=== PATIENT | female | born 1950 | race Caucasian/White ===

== ENCOUNTER → 2017-08-07 | Outpatient (CLI) | payer MEDICARE, OTHER ==
--- NOTE | 2017-08-07 14:21 | RADIOLOGY REPORT (SQ) ---
EXAM DESCRIPTION: MRI PELVIS COMBO COMPLETED DATE/TIME: 08/07/2017 2:02 pm REASON FOR STUDY: DYSURIA, PELVIC AND PERINEAL PAIN R30.0 DYSURIA R10.2 PELVIC AND PERINEAL PAIN COMPARISON: None. TECHNIQUE: Multiplanar multisequence imaging performed without and with contrast including axial, sa gittal and coronal T2, axial T, axial gradient fat sat T1, axial, sagittal and coronal fat sat T2 pos t contrast. CONTRAST TYPE AND DOSE: 15 mL Prohance. RENAL FUNCTION: GFR > 60. LIMITATIONS: None. FINDINGS: BLADDER AND URETHRA: No focal bladder wall thickening or nodularity. Smooth mucosa. The urethra has smooth contour with no focal asymmetry. No abnormal enhancement. No focal lesions. PELVIC SOFT TISSUES: Normal. No masses. UTERUS: Prior hysterectomy. RIGHT OVARY: Not visualized. LEFT OVARY: Not visualized. FREE FLUID: None. PELVIC SKELETAL STRUCTURES: No abnormal marrow signal. EXTRA PELVIS SOFT TISSUES: No masses. OTHER: No other significant finding. IMPRESSION: No significant abnormality. TECHNICAL DOCUMENTATION: JOB ID: [id number] [employer]- All Rights Reserved
== END ==
LOC: RAD 13:00
PROVIDERS: ATTEND Urology
DX: R10.2 Pelvic and perineal pain (principal); R30.0 Dysuria
CPT/HCPCS: 82565; 72197; A9576

== ENCOUNTER → 2018-11-05 | Outpatient (CLI) | payer MEDICARE, OTHER ==
--- NOTE | 2018-11-05 13:21 | RADIOLOGY REPORT (SQ) ---
EXAM DESCRIPTION: BARIUM SWALLOW ESOPHAGUS COMPLETED DATE/TIME: 11/05/2018 9:38 am REASON FOR STUDY: DYSPHAGIA (R13.10) R13.10 DYSPHAGIA, UNSPECIFIED COMPARISON: None. TECHNIQUE: Under fluoroscopic guidance, patient ingested effervescent granules followed by thick and thin barium. Fluoroscopic spot images and routine radiographic images acquired and stored on PACS. 12 MM BARIUM TABLET GIVEN: Yes. Slight delay in passage through the esophagus. LIMITATIONS: None. FLUOROSCOPY TIME: FLUORO TIME: 1 minutes 25 seconds of fluoroscopy was used. 14 images saved to PACS. FINDINGS: NEUROMUSCULAR COORDINATION OF SWALLOW: Normal. No aspiration. Mild cricopharyngeal hypert rophy. ESOPHAGEAL MOTILITY: Slow primary peristalsis. Focal area of narrowing at the level of the thoracic inlet which may be focal area of spasm although extrinsic compression cannot be entirely ruled out. There is slight delay in passage of the 12 mm barium tablet through this area. ESOPHAGEAL MUCOSA: Normal mucosa without masses or ulceration. GASTRO-ESOPHAGEAL JUNCTION: Small sliding hiatal hernia with mild gastroesophageal reflux seen. 12 m m barium tablet passed through the GE junction without delay. NON-GI TRACT STRUCTURES: No significant finding. OTHER: No other significant finding. IMPRESSION: FOCAL AREA OF NARROWING OF THE ESOPHAGUS AT THE THORACIC INLET WHICH MAY BE FOCAL AREA O F SPASM ALTHOUGH EXTRINSIC COMPRESSION CANNOT BE ENTIRELY RULED OUT. 12 MM BARIUM TABLET IS DELAYED THROUGH THIS AREA. FOLLOW-UP CLINICALLY INDICATED. SMALL SLIDING HIATAL HERNIA WITH MILD GASTROE SOPHAGEAL REFLUX. COMMENT: Quality ID [id number]: Final reports for procedures using fluoroscopy that document radiation exp osure indices, or exposure time and number of fluorographic images (if radiation exposure indices are not available) TECHNICAL DOCUMENTATION: JOB ID: [id number] [employer]- All Rights Reserved Reading location - IP/workstation name: [email or web address]
== END ==
LOC: RAD 08:52
PROVIDERS: ATTEND Internal Medicine
DX: K21.9 Gastro-esophageal reflux disease without esophagitis (principal); K44.9 Diaphragmatic hernia without obstruction or gangrene; R13.10 Dysphagia, unspecified
CPT/HCPCS: 74220

== ENCOUNTER 2019-02-14 17:10 | Emergency (ER) | payer MEDICARE, OTHER ==
[2019-02-14] MEDS ORDERED: KETOROLAC TROMETHAMINE INJ/PF 30 MG/1 ML SDV IV ONE (17:40)
[2019-02-14] MEDS ORDERED: NORMAL SALINE 500 ML IV ONE (17:42)
--- NOTE | 2019-02-14 17:44 | ER Document Report ---
ED Medical Screen (RME) - General Chief Complaint: Flank Pain Stated Complaint: FLANK PAIN Time Seen by Provider: 02/14/19 17:36 Primary Care Provider: ARLYN RODGERS MD [Primary Care Provider] - Follow up as needed Mode of Arrival: Ambulatory Information source: Patient Notes: 68-year-old female presents to ED for complaint of right flank shoulder and chest pain. She states his pain with movement or change in pain with deep reason. States she does have a history of kidney stones essential tremors cholesterol fibromyalgia fractured fingers and toes and had a colonoscopy a month ago. She states she went in and followed up visit recently and they told her that if she continued to have pain they were going to do a CAT scan of the abdomen. She has had bilateral shoulder repair hysterectomy rectocele repair gallbladder removed and finger surgery. She is alert oriented respirations regular and unlabored speaking in full sentences. I have greeted and performed a rapid initial assessment of this patient. A comprehensive ED assessment and evaluation of the patient, analysis of test results and completion of medical decision making process will be conducted by an additional ED providers. TRAVEL OUTSIDE OF THE [place] IN LAST 30 DAYS: No - Related Data Allergies/Adverse Reactions: ceftriaxone sodium [From Rocephin] Allergy (Severe, Verified 07/04/15 09:56) Shortness of Breath clarithromycin [From Biaxin] Allergy (Severe, Verified 07/04/15 09:56) n and v codeine [Codeine] Allergy (Severe, Verified 07/04/15 09:56) ?rash latex [Latex] Allergy (Severe, Verified 07/04/15 09:56) Generalized Itching levofloxacin [From Levaquin] Allergy (Severe, Verified 07/04/15 09:56) Shortness of Breath metronidazole [From Flagyl] Allergy (Severe, Verified 07/04/15 09:56) n and v niacin [From Niaspan Extended-Release] Allergy (Severe, Verified 07/04/15 09:56) Anaphylaxis oxycodone HCl [From Percodan] Allergy (Severe, Verified 07/04/15 09:56) rash oxycodone terephthalate [From Percodan] Allergy (Severe, Verified 07/04/15 09:56) rash Penicillins Allergy (Severe, Verified 07/04/15 09:56) ? does not remember Sulfa (Sulfonamide Antibiotics) Allergy (Severe, Verified 07/04/15 09:56) ? does not remember tramadol HCl [From Ultram] Allergy (Severe, Verified 07/04/15 09:56) rash Past Medical History - Social History Frequency of alcohol use: None Drug Abuse: None - Past Medical History Cardiac Medical History: Reports: Hx Hypercholesterolemia Denies: Hx Coronary Artery Disease, Hx Heart Attack, Hx Hypertension Pulmonary Medical History: Reports: Hx Bronchitis - hx of, Hx Pneumonia - hx of Denies: Hx Asthma, Hx COPD Neurological Medical History: Denies: Hx Cerebrovascular Accident, Hx Seizures Renal/ Medical History: Denies: Hx Peritoneal Dialysis GI Medical History: Reports: Hx Gastroesophageal Reflux Disease Musculoskeltal Medical History: Reports Hx Arthritis - fibromyalgia, Reports Hx Fibromyalgia Past Surgical History: Reports: Hx Cholecystectomy, Hx Hysterectomy - Immunizations Hx Diphtheria, Pertussis, Tetanus Vaccination: Yes Physical Exam - Vital signs Vitals: Temp Pulse Resp BP Pulse Ox 98.3 F 91 16 110/66 96 02/14/19 17:30 02/14/19 17:30 02/14/19 17:30 02/14/19 17:30 02/14/19 17:30 Course - Vital Signs Vital signs: Temp Pulse Resp BP Pulse Ox 98.3 F 91 16 110/66 96 02/14/19 17:30 02/14/19 17:30 02/14/19 17:30 02/14/19 17:30 02/14/19 17:30 Doctor's Discharge - Discharge Referrals: ARLYN RODGERS MD [Primary Care Provider] - Follow up as needed
[2019-02-14 19:05] LABS: ABSOLUTE BASOPHILS # (AUTO) 0.1 10^3/uL (0.0-0.2); ABSOLUTE EOSINOPHILS # (AUTO) 0.1 10^3/uL (0.0-0.6); ABSOLUTE LYMPHOCYTES (AUTO) 1.8 10^3/uL (0.5-4.7); ABSOLUTE MONOCYTES (AUTO) 0.9 10^3/uL (0.1-1.4); ABSOLUTE NEUT (AUTO) 6.4 10^3/uL (1.7-8.2); BASOPHILS % (AUTO) 0.6 % (0-2); EOSINOPHILS % (AUTO) 0.7 % (0-6); HEMATOCRIT 41.2 % (36.0-47.0); LYMPHOCYTES % (AUTO) 19.3 % (13-45); MEAN CORPUSCULAR HEMOGLOBIN 30.5 pg (27.0-33.4); MEAN CORPUSCULAR HGB CONC 34.1 g/dL (32.0-36.0); MEAN CORPUSCULAR VOLUME 90 fl (80-97); MONOCYTES % (AUTO) 9.3 % (3-13); PLATELET COUNT 193 10^3/uL (150-450); RED BLOOD COUNT 4.61 10^6/uL (3.72-5.28); RED CELL DISTRIBUTION WIDTH 13.8 % (11.5-14.0); SEGMENTED NEUTROPHILS % (AUTO) 70.1 % (42-78); TOTAL CELLS COUNTED % (AUTO) 100 %; WHITE BLOOD COUNT 9.2 10^3/uL (4.0-10.5)
--- NOTE | 2019-02-14 19:10 | RADIOLOGY REPORT (SQ) ---
EXAM DESCRIPTION: CHEST 2 VIEWS COMPLETED DATE/TIME: 02/14/2019 6:55 pm REASON FOR STUDY: pain right chest flank and abdomen COMPARISON: Chest x-ray 10/09/2013. EXAM PARAMETERS: NUMBER OF VIEWS: two views TECHNIQUE: Digital Frontal and Lateral radiographic views of the chest acquired. RADIATION DOSE: NA LIMITATIONS: none FINDINGS: LUNGS AND PLEURA: No consolidation, pneumothorax or pleural effusion. Mild atelectasis at the left lung base. MEDIASTINUM AND HILAR STRUCTURES: No masses or contour abnormalities. HEART AND VASCULAR STRUCTURES: Heart normal size. No evidence for failure. BONES: No acute findings. HARDWARE: None in the chest. IMPRESSION: Mild atelectasis at the left lung base. TECHNICAL DOCUMENTATION: JOB ID: [id number] [place]-64 2010 [employer]- All Rights Reserved Reading location - IP/workstation name: [email or web address]
[2019-02-14 19:15] LABS: APPEARANCE,URINE CLEAR; BILIRUBIN,URINE NEGATIVE (NEGATIVE); COLOR,URINE YELLOW; GLUCOSE, URINE NEGATIVE (NEGATIVE); KETONES,URINE NEGATIVE (NEGATIVE); LEUKOCYTE ESTERASE,URINE MODERATE (NEGATIVE); NITRITE,URINE NEGATIVE (NEGATIVE); PROTEIN,URINE NEGATIVE (NEGATIVE); URINE SPECIFIC GRAVITY 1.017; UROBILINOGEN,URINE NEGATIVE mg/dL (<2.0)
[2019-02-14 19:24] LABS: ALBUMIN 4.3 g/dL (3.5-5.0); ALKALINE PHOSPHATASE 78 U/L (38-126); ANION GAP 10 (5-19); ASPARTATE AMINO TRANSFERASE 21 U/L (14-36); BILIRUBIN,DIRECT 0.2 mg/dL (0.0-0.4); BILIRUBIN,TOTAL 0.4 mg/dL (0.2-1.3); BLOOD UREA NITROGEN 18 mg/dL (7-20); CALCIUM 9.5 mg/dL (8.4-10.2); CARBON DIOXIDE 29 mmol/L (22-30); CHLORIDE 99 mmol/L (98-107); CREATINE KINASE 29 U/L (30-135); GLUCOSE 121 mg/dL (75-110); POTASSIUM 4.1 mmol/L (3.6-5.0); TOTAL PROTEIN 6.9 g/dL (6.3-8.2)
[2019-02-14 19:35] LABS: CREATINE KINASE MB 0.25 ng/mL (<4.55)
[2019-02-14 19:41] LABS: TROPONIN I < 0.012 ng/mL
[2019-02-14] MEDS ORDERED: ONDANSETRON HCL INJ/PF 4 MG/2 ML SDV IV ONE (20:15)
[2019-02-14] MEDS ORDERED: FENTANYL CITRATE INJ/PF 100 MCG/2 ML AMPUL IV ONE (20:15)
--- NOTE | 2019-02-14 20:17 | ER Document Report ---
ED General - General Chief Complaint: Flank Pain Stated Complaint: FLANK PAIN Time Seen by Provider: 02/14/19 17:36 Primary Care Provider: ARLYN RODGERS MD [Primary Care Provider] - Follow up as needed Mode of Arrival: Ambulatory Notes: Patient is a 5-year-old female that comes emergency department for chief complaint of pain in her right flank the patient, right side, and pain around and up into the right shoulder area. She states it hurts when she takes a deep breath and she cannot lie down. She denies injury. She denies fever/chills. She denies dizziness, nausea/vomiting, abdominal pain. She states she has a history of kidney stones but this does not feel the same. She has a past medical history including vomiting, cholecystectomy, hysterectomy, fibromyalgia, essential tremor. at bedside. TRAVEL OUTSIDE OF THE [place] IN LAST 30 DAYS: No - Related Data Allergies/Adverse Reactions: ceftriaxone sodium [From Rocephin] Allergy (Severe, Verified 07/04/15 09:56) Shortness of Breath clarithromycin [From Biaxin] Allergy (Severe, Verified 07/04/15 09:56) n and v codeine [Codeine] Allergy (Severe, Verified 07/04/15 09:56) ?rash latex [Latex] Allergy (Severe, Verified 07/04/15 09:56) Generalized Itching levofloxacin [From Levaquin] Allergy (Severe, Verified 07/04/15 09:56) Shortness of Breath metronidazole [From Flagyl] Allergy (Severe, Verified 07/04/15 09:56) n and v niacin [From Niaspan Extended-Release] Allergy (Severe, Verified 07/04/15 09:56) Anaphylaxis oxycodone HCl [From Percodan] Allergy (Severe, Verified 07/04/15 09:56) rash oxycodone terephthalate [From Percodan] Allergy (Severe, Verified 07/04/15 09:56) rash Penicillins Allergy (Severe, Verified 07/04/15 09:56) ? does not remember Sulfa (Sulfonamide Antibiotics) Allergy (Severe, Verified 07/04/15 09:56) ? does not remember tramadol HCl [From Ultram] Allergy (Severe, Verified 07/04/15 09:56) rash Past Medical History - General Information source: Patient - Social History Smoking Status: Never Smoker Frequency of alcohol use: None Drug Abuse: None Family History: Reviewed & Not Pertinent Patient has suicidal ideation: No Patient has homicidal ideation: No - Past Medical History Cardiac Medical History: Reports: Hx Hypercholesterolemia Denies: Hx Coronary Artery Disease, Hx Heart Attack, Hx Hypertension Pulmonary Medical History: Reports: Hx Bronchitis - hx of, Hx Pneumonia - hx of Denies: Hx Asthma, Hx COPD Neurological Medical History: Denies: Hx Cerebrovascular Accident, Hx Seizures Renal/ Medical History: Denies: Hx Peritoneal Dialysis GI Medical History: Reports: Hx Gastroesophageal Reflux Disease Musculoskeletal Medical History: Reports Hx Arthritis - fibromyalgia, Reports Hx Fibromyalgia Past Surgical History: Reports: Hx Cholecystectomy, Hx Hysterectomy - Immunizations Hx Diphtheria, Pertussis, Tetanus Vaccination: Yes Hx Pneumococcal Vaccination: 02/24/12 Review of Systems - Review of Systems Constitutional: No symptoms reported EENT: No symptoms reported Cardiovascular: See HPI Respiratory: See HPI Gastrointestinal: No symptoms reported Genitourinary: No symptoms reported Female Genitourinary: No symptoms reported Musculoskeletal: See HPI Skin: No symptoms reported Hematologic/Lymphatic: No symptoms reported Neurological/Psychological: No symptoms reported Physical Exam - Vital signs Vitals: Temp Pulse Resp BP Pulse Ox 98.3 F 91 16 110/66 96 02/14/19 17:30 02/14/19 17:30 02/14/19 17:30 02/14/19 17:30 02/14/19 17:30 - Notes Notes: GENERAL: Alert, interacts well. No acute distress. HEAD: Normocephalic, atraumatic. EYES: Pupils equal, round, and reactive to light. Extraocular movements intact. ENT: Oral mucosa moist, tongue midline. Oropharynx unremarkable. Airway patent. Nares patent, no nasal septal hematoma, TM's intact. NECK: Full range of motion. Supple. Trachea midline. LUNGS: Clear to auscultation bilaterally, no wheezes, rales, or rhonchi. No respiratory distress. HEART: Regular rate and rhythm. No murmur ABDOMEN: Soft, non-tender. Non-distended. Bowel sounds present in all 4 quadrants. GENITOURINARY: Deferred EXTREMITIES: Moves all 4 extremities spontaneously. No edema, normal radial and dorsalis pedis pulses bilaterally. No cyanosis. BACK: Tender over the right side of the back superior to the lower ribs and up towards the base of the scapula. Patient winces with palpation over these areas. Pain is also worse with movement. No erythema, swelling, severe tenderness. Midline examination was normal, no saddle anesthesia, moves all extremities and full range of motion. No CVA tenderness. NEUROLOGICAL: Alert and oriented x3. Normal speech. Cranial nerves II through XII grossly intact. PSYCH: Normal affect, normal mood. SKIN: Warm, dry, normal turgor. No rashes or lesions noted. Course - Re-evaluation Re-evalutation: CBC unremarkable, chemistry unremarkable, troponin negative. Urinalysis shows moderate leukocyte esterase, 12 white blood cells, however patient has no lower abdominal pain, no CVA tenderness on exam, no urinary symptoms. No fever. Culture was placed. Patient reporting of pain in her back radiating up into her abdomen, she has a lot of back pain on palpation in the upper back, abdomen seems benign. Patient stating at times pain is very severe. She states it makes her feel short of breath. However she denies chest pain. I discussed options with patient. Patient states she was supposed to be getting a CAT scan but symptoms worsened so she came in. Work-up is nonspecific, this could be musculoskeletal, however patient is concerned there is "something wrong with the lungs". Decision was made to proceed with CTA of the chest and abdomen to rule out aortic dissection, pulmonary embolism, or abdominal pathology. CTA performed and shows large amount of retained stool but is clear otherwise including the lungs and vasculature. I discussed this with patient in detail. She states that caraballo, however she states great satisfaction with this as well. She agrees to take magnesium citrate at home, declines pain medication, declines stool softener prescriptions I did discuss the details, I did discuss follow-up and return precautions with patient and significant other at bedside. They state satisfaction and agreement with plan.. Stable at time of discharge. - Vital Signs Vital signs: Temp Pulse Resp BP Pulse Ox 98.1 F 91 21 H 114/64 99 02/14/19 22:24 02/14/19 17:30 02/14/19 22:24 02/14/19 22:24 02/14/19 22:24 - Laboratory Result Diagrams: 02/14/19 18:41 02/14/19 18:41 Laboratory results interpreted by me: 02/14/19 02/14/19 18:41 18:41 Est GFR (MDRD) Non-Af 50 L Glucose 121 H Creatine Kinase 29 L Ur Leukocyte Esterase MODERATE H Discharge - Discharge Clinical Impression: Flank pain, Upper back pain Abdominal pain Qualifiers: Abdominal location: generalized Qualified Code(s): R10.84 - Generalized abdominal pain Condition: Stable Disposition: HOME, SELF-CARE Additional Instructions: Your imaging and work-up are reassuring. There is a lot of retained stool in your large intestine however. I recommend that you drink 1/4 to 1/2 of the magnesium citrate, then if after several hours you do not have bowel movement results drink another 1/4 to half. You may need to take your MiraLAX stool softener for the next 2-4 days as well as prescribed. Eat vegetables, fruits, fiber, and fluids (these are very helpful to clear your bowels). Follow-up with primary care. Return if you worsen including vomiting, severe worsening pain, fever, or any other concerning symptoms. Referrals: ARLYN RODGERS MD [Primary Care Provider] - Follow up as needed
--- NOTE | 2019-02-14 22:33 | RADIOLOGY REPORT (SQ) ---
EXAM DESCRIPTION: CT ABDOMEN PELVIS WITHOUT THEN WITH IV CONTRAST, CT CHEST ANGIOGRAPHY WITHOUT THEN WITH IV CONTRAST COMPLETED DATE/TME: 02/14/2019 20:14 CLINICAL HISTORY: 68 years, Female, very sharp pain radiating into back; SOB COMPARISON: None. TECHNIQUE: 852 Images stored on PACS. All CT scanners at this facility use dose modulation, iterative reconstruction, and/or weight based dosing when appropriate to reduce radiation dose to as low as reasonably achievable (ALARA). Axial images with coronal and sagittal MIPS [facility]: Dose Right [facility]: CareDose [facility]: Dose Right [facility]: Teradose 4D [facility]: [employer] LIMITATIONS: None. FINDINGS: CTA chest: The mediastinal vasculature enhances normally. No intraluminal filling defect to suggest pulmonary embolus. Negative for thoracic aortic aneurysm or dissection. The heart and pericardium are unremarkable. No adenopathy. Osseous structures of the thorax are grossly intact. No pneumothorax. Visualized airways are patent. Lungs are clear. CTA abdomen/pelvis: The visualized liver, spleen, adrenal glands, pancreas, kidneys are unremarkable. Surgical absence of the gallbladder. No gross evidence for bowel obstruction. No free air or free fluid. Abundant stool in the colon. The celiac axis, superior mesenteric artery, inferior mesenteric artery are widely patent. Widely patent renal arteries bilaterally. Negative for abdominal aortic aneurysm or dissection. Minimal atheromatous calcification of the infrarenal abdominal aorta. The bilateral common, internal, external iliac arteries are widely patent. The bilateral common femoral arteries are widely patent. IMPRESSION: Negative for thoracic or abdominal aortic aneurysm or dissection. Minimal atheromatous calcification of the infrarenal abdominal aorta. Lungs are clear. Abundant stool in the colon TECHNICAL DOCUMENTATION: Quality ID # [id number]: Final reports with documentation of one or more dose reduction techniques (e.g., Automated exposure control, adjustment of the mA and/or kV according to patient size, use of iterative reconstruction technique) copyright 2010 [employer]- All Rights Reserved
[2019-02-14] MEDS ORDERED: MAGNESIUM CITRATE 296 ML BOTTLE PO ONE (22:44)
[2019-02-14 22:53] VITALS: BP 114/64
== END 2019-02-14 23:03 | disposition home or self-care (01) ==
LOC: ER 17:10
DX: M54.6 Pain in thoracic spine (principal); R10.84 Generalized abdominal pain; E78.00 Pure hypercholesterolemia, unspecified; Z90.49 Acquired absence of other specified parts of digestive tract; Z90.710 Acquired absence of both cervix and uterus; Z88.6 Allergy status to analgesic agent; Z88.0 Allergy status to penicillin; Z91.040 Latex allergy status
CPT/HCPCS: 36415; 87086; 82553; 82550; 83690; 85025; 80053; 81001; 84484; 71046; 71275; 74174; J3490; J3010; J1885; J2405; J7040; 96361; 96374; 96375; 99284